=== PATIENT | male | born 1970 | race African-American/Black ===

== ENCOUNTER 2024-07-25 08:27 | Day surgery (SDC) | payer MEDICARE ==
[2024-07-24 15:51] VITALS: BMI 24.0
[2024-07-25] MEDS ORDERED: fentaNYL 50 mcg/mL 1 mL Vial ONE (10:23)
[2024-07-25] MEDS ORDERED: PROPOFOL 40 ML ONE (10:23)
[2024-07-25] MEDS ORDERED: CEFAZOLIN 2 GM VIAL ONE (11:09)
[2024-07-25] MEDS ORDERED: Metoclopramide HCl 10 MG (2 mL) VIAL ONE (11:27)
[2024-07-25] MEDS ORDERED: Ondansetron PF 4 MG/2 ML Vial ONE (11:27)
[2024-07-25] MEDS ORDERED: HYDROcodone/Acetaminophen 5/325 mg Tablet ONE (12:49)
== END 2024-07-25 13:10 | disposition home or self-care (01) ==
LOC: CSHSDC 08:27
PROVIDERS: ATTEND Podiatrist Foot & Ankle Surgery
PROC: 0JBR0ZZ Excision of Left Foot Subcutaneous Tissue and Fascia, Open Approach (ICD-10-PCS; principal; 2024-07-25)
DX: D23.72 Other benign neoplasm of skin of left lower limb, including hip (principal); G62.9 Polyneuropathy, unspecified; Z85.038 Personal history of other malignant neoplasm of large intestine; Z90.49 Acquired absence of other specified parts of digestive tract; Z79.899 Other long term (current) drug therapy
CPT/HCPCS: 11421; J2405; J2704; J2765; J3010; 88305